=== PATIENT | female | born 1960 | race African-American/Black ===

== ENCOUNTER 2017-01-07 20:57 | Emergency (ER) | payer OTHER ==
[2017-01-07 21:14] VITALS: BP 126/69; PULSE 83; TEMP 97.9; BMI 34.7
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
[2017-01-07] MEDS ORDERED: KETOROLAC TROMETHAMINE 60 MG/2 ML VIAL IM ONE (22:02)
[2017-01-07] MEDS ORDERED: CYCLOBENZAPRINE HCL 10 MG TABLET (FP) PO ONE (22:02)
[2017-01-07] MEDS ORDERED: CYCLOBENZAPRINE HCL 10 MG TABLET (FP) ONE (22:05)
[2017-01-07] MEDS ORDERED: KETOROLAC TROMETHAMINE 60 MG/2 ML VIAL ONE (22:05)
== END 2017-01-07 22:12 | disposition home or self-care (01) ==
LOC: JERFT 20:57 → SUPCPDRO 20:57 → JERFT 22:12
PROC: 3E0233Z Introduction of Anti-inflammatory into Muscle, Percutaneous Approach (ICD-10-PCS; principal; 2017-01-07)
DX: S16.1XXA Strain of muscle, fascia and tendon at neck level, initial encounter (principal); V43.52XA Car driver injured in collision with other type car in traffic accident, initial encounter; Y93.89 Activity, other specified; Y92.410 Unspecified street and highway as the place of occurrence of the external cause
CPT/HCPCS: 99281-25